=== PATIENT | male | born 1940 | race Caucasian/White ===

== ENCOUNTER → 2016-08-07 | Outpatient (CLI) | payer MEDICARE, OTHER ==
[~2016-08-07] MED LIST: CELEBREX 200MG200 MG PO; COUMADIN; CYMBALTA20 MG; GLUCOPHAGE PO; HYDROCODONE BIT1 T44; LORTAB 5/3251 TAB PO; METFORMIN HYDRO25 GM; NEXIUM2.5 MG/Pac
[2016-08-07 15:56] VITALS: BP 115/71
[2016-08-07 18:10] VITALS: BP 129/84
[2016-08-07 20:13] VITALS: BP 131/75
[2016-08-07 20:23] VITALS: BP 138/97
== END ==
LOC: AMSURD 15:45
DX: R11.2 Nausea with vomiting, unspecified (principal); R19.7 Diarrhea, unspecified; E86.0 Dehydration; E11.8 Type 2 diabetes mellitus with unspecified complications; N39.0 Urinary tract infection, site not specified; E11.9 Type 2 diabetes mellitus without complications
CPT/HCPCS: J7030

== ENCOUNTER → 2019-02-23 | Outpatient (CLI) | payer MEDICARE, OTHER ==
[2016-08-07 20:23] VITALS: BP 138/97
== END ==
LOC: RAD 10:36 → MAMMO 10:45
DX: M81.0 Age-related osteoporosis without current pathological fracture (principal)

== ENCOUNTER 2019-06-08 17:02 | Emergency (ER) | payer MEDICARE, OTHER ==
[~2019-06-08] VITALS: Wt 89.5 kg
[~2019-06-08 17:02] MED LIST changes: -CYMBALTA20 MG; +CYMBALTA60 M1 PO; -GLUCOPHAGE PO; +GLUCOPHAGE1000 MG PO
[2019-06-08 17:34] LABS: HEMATOCRIT 36.8 % (42.0-52.0); HEMOGLOBIN 11.6 g/dL (13.5-18.0); MEAN CELL VOLUME 88 fl (78-100); MEAN CORPUSCULAR HEMOGLOBIN 28 pg (27-31); MEAN CORPUSCULAR HGB CONC 32 g/dL (33-37); MEAN PLATELET VOLUME 10.3 fl (7.4-10.4); PLATELET COUNT 204 K/mm3 (130-400); RED BLOOD COUNT 4.17 M/mm3 (4.20-5.60); RED CELL DISTRIBUTION WIDTH 13.6 % (11.5-14.5); WHITE BLOOD COUNT 14.5 K/mm3 (4.8-10.8)
[2019-06-08 17:42] LABS: ALBUMIN 4.2 g/dL (3.4-4.8); POTASSIUM 4.1 mmol/L (3.5-5.1); SODIUM 134 mmol/L (136-145)
[2019-06-08 17:43] LABS: CALCIUM 9.7 mg/dL (8.3-10.5)
[2019-06-08 17:44] LABS: GLUCOSE 213 mg/dL (75-110)
[2019-06-08 17:46] LABS: CARBON DIOXIDE 22 mmol/L (23-31); TOTAL BILIRUBIN 0.9 mg/dL (0.2-1.2)
[2019-06-08 17:49] LABS: BAND 3 % (0-10); LYMPHOCYTE 8 % (20-51); MONOCYTE 8 % (3-10); NEUTROPHILS 80 % (42-75)
[2019-06-08 17:50] LABS: AST-SGOT 18 U/L (5-34)
[2019-06-08 17:51] LABS: ALT/SGPT 17 U/L (0-55)
[2019-06-08 18:03] LABS: TROPONIN-I < 0.03 ng/mL (<0.030)
[2019-06-08 18:10] LABS: D-DIMER 0.45 mg/L FEU (0.15-0.50); PROTHROMBIN TIME 59.7 SECONDS (9.0-12.0)
[2019-06-08] MEDS ORDERED: ASPIRIN E.C. 8181 MG PO (18:57)
[2019-06-08] MEDS ORDERED: NATURE'S BOUNTY1 TAB PO (18:58)
[2019-06-08] MEDS ORDERED: PLETAL 100MG T100 MG PO (18:59)
[2019-06-08] MEDS ORDERED: FEROSUL325 M1 PO (19:00)
[2019-06-08] MEDS ORDERED: NEURONTIN300 M1 PO (19:00)
[2019-06-08] MEDS ORDERED: NORCO 325 MG-51 TA1 PO (19:00)
[2019-06-08] MEDS ORDERED: LISINOPRIL2.5 MG PO (19:01)
[2019-06-08] MEDS ORDERED: CENTRUM ADULTS1 EACH PO (19:02)
[2019-06-08] MEDS ORDERED: NORTRIPTYLINE H10 M2 PO (19:02)
[2019-06-08] MEDS ORDERED: PRAVASTATIN SOD80 MG PO (19:03)
[2019-06-08] MEDS ORDERED: OMEGA-31000 M1 PO (19:03)
[2019-06-08] MEDS ORDERED: PAMELOR50 M1 PO (19:03)
[2019-06-08] MEDS ORDERED: FLOMAX0.4 MG PO (19:04)
[2019-06-08] MEDS ORDERED: COUMADIN 5MG5 MG/TAB PO ×2 (19:12)
[2019-06-08 19:34] VITALS: BP 114/62
== END 2019-06-08 19:40 | disposition other institution (70) ==
LOC: ED 17:02
PROVIDERS: Nurse Practitioner Family
DX: J20.9 Acute bronchitis, unspecified (principal); J44.0 Chronic obstructive pulmonary disease with (acute) lower respiratory infection; J44.1 Chronic obstructive pulmonary disease with (acute) exacerbation; J18.0 Bronchopneumonia, unspecified organism; N28.9 Disorder of kidney and ureter, unspecified; E11.65 Type 2 diabetes mellitus with hyperglycemia; E11.51 Type 2 diabetes mellitus with diabetic peripheral angiopathy without gangrene; I10 Essential (primary) hypertension; E78.5 Hyperlipidemia, unspecified; K21.9 Gastro-esophageal reflux disease without esophagitis; G47.33 Obstructive sleep apnea (adult) (pediatric); M54.9 Dorsalgia, unspecified; G89.29 Other chronic pain; Z79.01 Long term (current) use of anticoagulants; Z79.82 Long term (current) use of aspirin; Z79.84 Long term (current) use of oral hypoglycemic drugs; Z86.73 Personal history of transient ischemic attack (TIA), and cerebral infarction without residual deficits; Z86.79 Personal history of other diseases of the circulatory system; Z87.891 Personal history of nicotine dependence; Z98.890 Other specified postprocedural states; Z88.0 Allergy status to penicillin
CPT/HCPCS: J0456; J2930; J7030; J7050

== ENCOUNTER 2019-06-08 18:20 | Inpatient (IN) | payer MEDICARE, OTHER ==
[~2019-06-08] VITALS: Ht 167.6 cm; Wt 88.0 kg
[2019-06-08] MEDS ORDERED: ASPIRIN E.C. 8181 MG PO (18:57)
[2019-06-08] MEDS ORDERED: NATURE'S BOUNTY1 TAB PO (18:58)
[2019-06-08] MEDS ORDERED: PLETAL 100MG T100 MG PO (18:59)
[2019-06-08] MEDS ORDERED: FEROSUL325 M1 PO (19:00)
[2019-06-08] MEDS ORDERED: NORCO 325 MG-51 TA1 PO (19:00)
[2019-06-08] MEDS ORDERED: NEURONTIN300 M1 PO (19:00)
[2019-06-08] MEDS ORDERED: LISINOPRIL2.5 MG PO (19:01)
[2019-06-08] MEDS ORDERED: NORTRIPTYLINE H10 M2 PO (19:02)
[2019-06-08] MEDS ORDERED: CENTRUM ADULTS1 EACH PO (19:02)
[2019-06-08] MEDS ORDERED: PRAVASTATIN SOD80 MG PO (19:03)
[2019-06-08] MEDS ORDERED: OMEGA-31000 M1 PO (19:03)
[2019-06-08] MEDS ORDERED: PAMELOR50 M1 PO (19:03)
[2019-06-08] MEDS ORDERED: FLOMAX0.4 MG PO (19:04)
[2019-06-08] MEDS ORDERED: COUMADIN 5MG5 MG/TAB PO ×2 (19:12)
[2019-06-08 19:45] VITALS: BP 114/62
[2019-06-08 20:01] VITALS: BP 114/62
[2019-06-08 23:52] VITALS: BP 110/68
[2019-06-09] VITALS (8 sets, daily range): BP systolic 100–138; BP diastolic 57–80
[2019-06-09 02:55] LABS: URINE APPEARANCE CLEAR; URINE BILIRUBIN NEGATIVE (NEGATIVE); URINE BLOOD NEGATIVE (NEGATIVE); URINE COLOR YELLOW; URINE KETONE 1+ (NEGATIVE); URINE LEUKOCYTE ESTERASE NEGATIVE (NEGATIVE); URINE NITRATE NEGATIVE (NEGATIVE); URINE PROTEIN(semi-quant) NEGATIVE (NEGATIVE); URINE UROBILINOGEN NORMAL (NORMAL); URINE WBC 0-1 /hpf (0-3)
[2019-06-09 07:00] LABS: HEMATOCRIT 32.8 % (42.0-52.0); HEMOGLOBIN 10.4 g/dL (13.5-18.0); MEAN CELL VOLUME 88 fl (78-100); MEAN CORPUSCULAR HEMOGLOBIN 28 pg (27-31); MEAN CORPUSCULAR HGB CONC 32 g/dL (33-37); MEAN PLATELET VOLUME 10.2 fl (7.4-10.4); PLATELET COUNT 191 K/mm3 (130-400); RED BLOOD COUNT 3.71 M/mm3 (4.20-5.60); RED CELL DISTRIBUTION WIDTH 13.7 % (11.5-14.5); WHITE BLOOD COUNT 11.6 K/mm3 (4.8-10.8)
[2019-06-09 07:09] LABS: ALBUMIN 3.7 g/dL (3.4-4.8); POTASSIUM 4.3 mmol/L (3.5-5.1)
[2019-06-09 07:10] LABS: BAND 1 % (0-10); CALCIUM 8.7 mg/dL (8.3-10.5); LYMPHOCYTE 4 % (20-51); MONOCYTE 2 % (3-10); NEUTROPHILS 93 % (42-75)
[2019-06-09 07:12] LABS: TOTAL PROTEIN 6.2 g/dL (6.2-8.1)
[2019-06-09 07:13] LABS: TOTAL BILIRUBIN 0.4 mg/dL (0.2-1.2)
[2019-06-09 10:13] LABS: PROTHROMBIN TIME 69.5 SECONDS (9.0-12.0)
== END 2019-06-09 13:04 | disposition short-term general hospital (02) | DRG 871 ==
LOC: MED/SURG 18:20
PROVIDERS: Physician Assistant; ADMIT Nurse Practitioner Family
DX: A41.9 Sepsis, unspecified organism (principal); J18.9 Pneumonia, unspecified organism; E87.2 Acidosis; J20.9 Acute bronchitis, unspecified; I10 Essential (primary) hypertension; I71.4 Abdominal aortic aneurysm, without rupture; E11.40 Type 2 diabetes mellitus with diabetic neuropathy, unspecified; E11.51 Type 2 diabetes mellitus with diabetic peripheral angiopathy without gangrene; E11.65 Type 2 diabetes mellitus with hyperglycemia; R09.02 Hypoxemia; E78.5 Hyperlipidemia, unspecified; N28.9 Disorder of kidney and ureter, unspecified; K21.9 Gastro-esophageal reflux disease without esophagitis; G47.33 Obstructive sleep apnea (adult) (pediatric); Z79.82 Long term (current) use of aspirin; Z79.84 Long term (current) use of oral hypoglycemic drugs; Z79.01 Long term (current) use of anticoagulants; Z79.891 Long term (current) use of opiate analgesic; Z86.73 Personal history of transient ischemic attack (TIA), and cerebral infarction without residual deficits; Z95.5 Presence of coronary angioplasty implant and graft; Z87.891 Personal history of nicotine dependence
CPT/HCPCS: A4216; J0696; J1650; J1815; J2930; J3370; J7030; J7050; Q9967

== ENCOUNTER 2019-06-18 12:02 | Inpatient (IN) | payer MEDICARE, OTHER ==
[~2019-06-18] VITALS: Ht 167.6 cm; Wt 82.4 kg
[~2019-06-18 12:02] MED LIST changes: +ASPIRIN E.C. 8181 MG PO; +CENTRUM ADULTS1 EACH PO; +COUMADIN 5MG5 MG/TAB PO; +FEROSUL325 M1 PO; +FLOMAX0.4 MG PO; +LISINOPRIL2.5 MG PO; +NATURE'S BOUNTY1 TAB PO; +NEURONTIN300 M1 PO; +NORCO 325 MG-51 TA1 PO; +NORTRIPTYLINE H10 M2 PO; +OMEGA-31000 M1 PO; +PAMELOR50 M1 PO; +PLETAL 100MG T100 MG PO; +PRAVASTATIN SOD80 MG PO
[2019-06-18] MEDS ORDERED: TIAZAC240 M1 PO (16:14)
[2019-06-18] MEDS ORDERED: LEVAQUIN 750MG750 M1 PO (16:15)
[2019-06-18] MEDS ORDERED: PROMETHAZINE-C473 ML PO (16:16)
[2019-06-18] MEDS ORDERED: LISINOPRIL2.5 MG PO (16:17)
[2019-06-18] MEDS ORDERED: LOPRESSOR 225 MG/TAB PO (16:18)
[2019-06-18 16:19] LABS: HEMATOCRIT 33.1 % (42.0-52.0); HEMOGLOBIN 10.3 g/dL (13.5-18.0); MEAN CELL VOLUME 90 fl (78-100); MEAN CORPUSCULAR HEMOGLOBIN 28 pg (27-31); MEAN CORPUSCULAR HGB CONC 31 g/dL (33-37); MEAN PLATELET VOLUME 9.9 fl (7.4-10.4); PLATELET COUNT 206 K/mm3 (130-400); RED CELL DISTRIBUTION WIDTH 14.6 % (11.5-14.5); WHITE BLOOD COUNT 11.4 K/mm3 (4.8-10.8)
[2019-06-18] MEDS ORDERED: NEURONTIN300 MG/CAP (16:20)
[2019-06-18] MEDS ORDERED: COUMADIN 77.5 MG/TAB PO (16:24)
[2019-06-18] MEDS ORDERED: COUMADIN 5MG5 MG/TAB PO (16:25)
[2019-06-18 16:30] LABS: ALBUMIN 3.4 g/dL (3.4-4.8); POTASSIUM 4.3 mmol/L (3.5-5.1)
[2019-06-18 16:31] LABS: BAND 3 % (0-10); LYMPHOCYTE 16 % (20-51); MONOCYTE 12 % (3-10); NEUTROPHILS 65 % (42-75)
[2019-06-18 16:32] LABS: CALCIUM 9.5 mg/dL (8.3-10.5)
[2019-06-18 16:33] LABS: TOTAL PROTEIN 6.6 g/dL (6.2-8.1)
[2019-06-18 16:35] LABS: TOTAL BILIRUBIN 0.7 mg/dL (0.2-1.2)
[2019-06-18 17:02] VITALS: BP 125/70
[2019-06-18 17:06] VITALS: BP 125/70
[2019-06-18 21:16] LABS: PH-URINE 6.5 (5.0 - 8.0); URINE APPEARANCE CLEAR; URINE BILIRUBIN NEGATIVE (NEGATIVE); URINE BLOOD TRACE (NEGATIVE); URINE COLOR YELLOW; URINE GLUCOSE NEGATIVE (NEGATIVE); URINE KETONE NEGATIVE (NEGATIVE); URINE NITRATE NEGATIVE (NEGATIVE); URINE PROTEIN(semi-quant) TRACE mg/dL (NEGATIVE); URINE UROBILINOGEN NORMAL (NORMAL)
[2019-06-18 21:17] LABS: URINE LEUKOCYTE ESTERASE TRACE (NEGATIVE); URINE WBC 0-1 /hpf (0-3)
[2019-06-19 05:52] VITALS: BP 119/67
[2019-06-19 18:00] VITALS: BP 145/70
[2019-06-20 05:59] VITALS: BP 122/66
[2019-06-20 18:16] VITALS: BP 110/64
[2019-06-20 18:28] LABS: PH-URINE 7.5 (5.0 - 8.0); URINE APPEARANCE CLEAR; URINE BILIRUBIN NEGATIVE (NEGATIVE); URINE BLOOD NEGATIVE (NEGATIVE); URINE COLOR YELLOW; URINE GLUCOSE NEGATIVE (NEGATIVE); URINE KETONE NEGATIVE (NEGATIVE); URINE LEUKOCYTE ESTERASE NEGATIVE (NEGATIVE); URINE NITRATE NEGATIVE (NEGATIVE); URINE PROTEIN(semi-quant) NEGATIVE (NEGATIVE); URINE UROBILINOGEN NORMAL (NORMAL); URINE WBC 0-1 /hpf (0-3)
[2019-06-20 18:29] LABS: URINE MUCUS PRESENT (NOT PRESENT)
[2019-06-21 06:02] VITALS: BP 118/52
[2019-06-21 18:20] VITALS: BP 125/76
[2019-06-22 05:53] VITALS: BP 102/60
[2019-06-22 06:33] LABS: PROTHROMBIN TIME 21.3 SECONDS (9.0-12.0)
[2019-06-22 09:22] LABS: EOS # 0.2 (0.04-0.40); EOS % 1.6 % (0.0-4.0); HEMATOCRIT 36.3 % (42.0-52.0); HEMOGLOBIN 11.1 g/dL (13.5-18.0); LYMPH# 1.9 (1.50-4.00); MEAN CELL VOLUME 90 fl (78-100); MEAN CORPUSCULAR HEMOGLOBIN 28 pg (27-31); MEAN CORPUSCULAR HGB CONC 31 g/dL (33-37); MONO # 0.9 (0.20-0.80); NEU # 6.3 (1.40-6.50); PLATELET COUNT 209 K/mm3 (130-400); RED BLOOD COUNT 4.04 M/mm3 (4.20-5.60); RED CELL DISTRIBUTION WIDTH 15.2 % (11.5-14.5); WHITE BLOOD COUNT 9.7 K/mm3 (4.8-10.8)
[2019-06-22 09:54] LABS: POTASSIUM 4.4 mmol/L (3.5-5.1)
[2019-06-22 09:55] LABS: CALCIUM 9.3 mg/dL (8.3-10.5)
[2019-06-22 18:20] VITALS: BP 107/65
[2019-06-22 21:15] VITALS: BP 84/56
[2019-06-23 06:05] VITALS: BP 161/64
[2019-06-23 07:40] VITALS: BP 109/65
[2019-06-23 14:23] VITALS: BP 97/56
[2019-06-23 18:38] VITALS: BP 101/61
[2019-06-24 05:57] VITALS: BP 104/56
[2019-06-24 08:42] VITALS: BP 124/78
[2019-06-24 17:51] VITALS: BP 106/58
[2019-06-25 05:49] VITALS: BP 105/70
[2019-06-25 12:36] VITALS: BP 85/53
[2019-06-25 17:18] VITALS: BP 113/70
[2019-06-25 18:08] VITALS: BP 91/58
[2019-06-26 05:55] VITALS: BP 100/69
[2019-06-26 09:30] VITALS: BP 102/63
[2019-06-26 12:54] VITALS: BP 92/68
[2019-06-26 14:05] VITALS: BP 131/72
[2019-06-26 18:18] VITALS: BP 120/67
[2019-06-27 05:45] VITALS: BP 115/74
[2019-06-27 11:30] LABS: POTASSIUM 4.3 mmol/L (3.5-5.1)
[2019-06-27 11:32] LABS: CALCIUM 9.2 mg/dL (8.3-10.5)
[2019-06-27 11:44] LABS: PROTHROMBIN TIME 35.7 SECONDS (9.0-12.0)
[2019-06-27 18:13] VITALS: BP 98/57
[2019-06-27 18:14] VITALS: BP 99/60
[2019-06-27 21:00] VITALS: BP 126/71
[2019-06-28 05:46] VITALS: BP 125/77
[2019-06-28 13:05] LABS: PROTHROMBIN TIME 24.2 SECONDS (9.0-12.0)
[2019-06-28 17:09] VITALS: BP 94/57
[2019-06-28 21:00] VITALS: BP 95/63
[2019-06-29 05:48] VITALS: BP 98/58
[2019-06-29 08:59] VITALS: BP 104/68
[2019-06-29 17:08] VITALS: BP 100/62
[2019-06-30 05:41] VITALS: BP 110/57
[2019-06-30] MEDS ORDERED: CARDIZEM CD180 M1 PO (08:34)
== END 2019-06-30 10:23 | disposition home or self-care (01) | DRG 947 ==
LOC: MED/SURG 12:02
PROVIDERS: Family Medicine; Internal Medicine; ADMIT Nurse Practitioner Primary Care
DX: R53.81 Other malaise (principal); J96.01 Acute respiratory failure with hypoxia; J18.9 Pneumonia, unspecified organism; B34.8 Other viral infections of unspecified site; I48.91 Unspecified atrial fibrillation; I10 Essential (primary) hypertension; E78.5 Hyperlipidemia, unspecified; E11.9 Type 2 diabetes mellitus without complications; I25.10 Atherosclerotic heart disease of native coronary artery without angina pectoris; R13.10 Dysphagia, unspecified; R00.0 Tachycardia, unspecified; I95.9 Hypotension, unspecified; N40.0 Benign prostatic hyperplasia without lower urinary tract symptoms; I25.2 Old myocardial infarction; K21.9 Gastro-esophageal reflux disease without esophagitis; G47.33 Obstructive sleep apnea (adult) (pediatric); R55 Syncope and collapse; Z79.82 Long term (current) use of aspirin; Z79.84 Long term (current) use of oral hypoglycemic drugs; Z79.891 Long term (current) use of opiate analgesic; Z79.01 Long term (current) use of anticoagulants; Z86.73 Personal history of transient ischemic attack (TIA), and cerebral infarction without residual deficits; Z87.891 Personal history of nicotine dependence; Z88.0 Allergy status to penicillin
CPT/HCPCS: J1650; J7030; J7050

== ENCOUNTER 2019-07-19 14:00 | Outpatient (RCR) | payer MEDICARE, OTHER ==
[~2019-07-19 14:00] MED LIST changes: +CARDIZEM CD180 M1 PO; +COUMADIN 77.5 MG/TAB PO; +LEVAQUIN 750MG750 M1 PO; +LOPRESSOR 225 MG/TAB PO; +NEURONTIN300 MG/CAP; +PROMETHAZINE-C473 ML PO; +TIAZAC240 M1 PO
== END 2019-07-19 14:30 ==
LOC: PT 14:00
DX: R53.1 Weakness (principal)

== ENCOUNTER 2020-03-07 15:30 | Inpatient (IN) | payer MEDICARE, OTHER ==
[~2020-03-07] VITALS: Ht 167.6 cm; Wt 73.9 kg
[2020-03-07] MEDS ORDERED: CARVEDILOL6.25 MG PO (17:54)
[2020-03-07] MEDS ORDERED: GLUCOPHAGE500 MG/TAB PO (18:14)
[2020-03-07] MEDS ORDERED: NEXIUM 40MG40 MG PO (18:17)
[2020-03-07] MEDS ORDERED: CRESTOR20 MG PO (18:20)
[2020-03-07] MEDS ORDERED: VITAMIN D3100 MCG PO (18:23)
[2020-03-07 18:28] VITALS: BP 95/63
[2020-03-07 20:54] LABS: URINE APPEARANCE CLEAR; URINE BILIRUBIN NEGATIVE (NEGATIVE); URINE BLOOD NEGATIVE (NEGATIVE); URINE COLOR YELLOW; URINE GLUCOSE NEGATIVE (NEGATIVE); URINE KETONE NEGATIVE (NEGATIVE); URINE LEUKOCYTE ESTERASE NEGATIVE (NEGATIVE); URINE MUCUS PRESENT (NOT PRESENT); URINE NITRATE NEGATIVE (NEGATIVE); URINE PROTEIN(semi-quant) TRACE mg/dL (NEGATIVE); URINE UROBILINOGEN NORMAL (NORMAL)
[2020-03-07 22:23] VITALS: BP 103/57
[2020-03-08 01:39] VITALS: BP 134/70
[2020-03-08 06:09] VITALS: BP 130/64
[2020-03-08 07:50] LABS: BASO # 0.1 (0.02-0.10); EOS # 0.4 (0.04-0.40); EOS % 4.3 % (0.0-4.0); HEMOGLOBIN 10.8 g/dL (13.5-18.0); LYMPH# 1.9 (1.50-4.00); MEAN CELL VOLUME 86 fl (78-100); MEAN CORPUSCULAR HEMOGLOBIN 28 pg (27-31); MEAN CORPUSCULAR HGB CONC 33 g/dL (33-37); MEAN PLATELET VOLUME 9.5 fl (7.4-10.4); MONO # 1.1 (0.20-0.80); NEU # 5.5 (1.40-6.50); PLATELET COUNT 201 K/mm3 (130-400); RED BLOOD COUNT 3.85 M/mm3 (4.20-5.60); RED CELL DISTRIBUTION WIDTH 14.9 % (11.5-14.5); WHITE BLOOD COUNT 9.1 K/mm3 (4.8-10.8)
[2020-03-08 07:54] LABS: ALBUMIN 3.2 g/dL (3.4-4.8); POTASSIUM 4.2 mmol/L (3.5-5.1)
[2020-03-08 07:56] LABS: CALCIUM 9.2 mg/dL (8.3-10.5)
[2020-03-08 07:57] LABS: TOTAL PROTEIN 6.7 g/dL (6.2-8.1)
[2020-03-08 08:03] LABS: MAGNESIUM 1.45 mg/dL (1.60-2.60)
[2020-03-08 10:30] VITALS: BP 99/63
[2020-03-08 12:48] VITALS: BP 99/63
[2020-03-08 17:29] VITALS: BP 111/62
[2020-03-08 22:00] VITALS: BP 113/68
[2020-03-09] VITALS (9 sets, daily range): BP systolic 93–142; BP diastolic 58–89
[2020-03-09 12:01] LABS: EOS # 0.2 (0.04-0.40); EOS % 2.4 % (0.0-4.0); HEMATOCRIT 36.1 % (42.0-52.0); HEMOGLOBIN 11.4 g/dL (13.5-18.0); LYMPH# 1.6 (1.50-4.00); MEAN CELL VOLUME 87 fl (78-100); MEAN CORPUSCULAR HEMOGLOBIN 28 pg (27-31); MEAN CORPUSCULAR HGB CONC 32 g/dL (33-37); MEAN PLATELET VOLUME 9.5 fl (7.4-10.4); MONO # 0.8 (0.20-0.80); NEU # 6.3 (1.40-6.50); PLATELET COUNT 239 K/mm3 (130-400); RED BLOOD COUNT 4.14 M/mm3 (4.20-5.60); RED CELL DISTRIBUTION WIDTH 15.4 % (11.5-14.5)
[2020-03-09 12:14] LABS: POTASSIUM 4.2 mmol/L (3.5-5.1)
[2020-03-09 12:15] LABS: CALCIUM 9.7 mg/dL (8.3-10.5)
[2020-03-10] VITALS (9 sets, daily range): BP systolic 105–133; BP diastolic 62–79
[2020-03-11] VITALS (8 sets, daily range): BP systolic 83–122; BP diastolic 55–78
[2020-03-11 11:56] LABS: HEMATOCRIT 37.4 % (42.0-52.0); HEMOGLOBIN 11.8 g/dL (13.5-18.0)
[2020-03-11 12:04] LABS: POTASSIUM 4.4 mmol/L (3.5-5.1)
[2020-03-11 12:05] LABS: CALCIUM 10.1 mg/dL (8.3-10.5)
[2020-03-12 01:25] VITALS: BP 131/84
[2020-03-12 05:39] VITALS: BP 115/71
[2020-03-12 08:35] VITALS: BP 114/77
[2020-03-12 14:23] VITALS: BP 111/73
[2020-03-12 18:00] VITALS: BP 116/76
[2020-03-12 21:41] VITALS: BP 106/67
[2020-03-13 01:36] VITALS: BP 112/74
[2020-03-13 06:06] VITALS: BP 132/76
[2020-03-13 07:26] LABS: EOS # 0.2 (0.04-0.40); EOS % 1.9 % (0.0-4.0); HEMATOCRIT 34.8 % (42.0-52.0); HEMOGLOBIN 10.8 g/dL (13.5-18.0); MEAN CELL VOLUME 87 fl (78-100); MEAN CORPUSCULAR HEMOGLOBIN 27 pg (27-31); MEAN CORPUSCULAR HGB CONC 31 g/dL (33-37); MEAN PLATELET VOLUME 9.3 fl (7.4-10.4); MONO # 0.9 (0.20-0.80); NEU # 5.9 (1.40-6.50); PLATELET COUNT 277 K/mm3 (130-400); RED CELL DISTRIBUTION WIDTH 15.1 % (11.5-14.5)
[2020-03-13 07:36] LABS: POTASSIUM 3.9 mmol/L (3.5-5.1)
[2020-03-13 07:37] LABS: CALCIUM 9.4 mg/dL (8.3-10.5)
[2020-03-13 07:43] LABS: MAGNESIUM 1.34 mg/dL (1.60-2.60)
[2020-03-13 10:05] VITALS: BP 106/71
[2020-03-13 13:37] VITALS: BP 123/78
[2020-03-13 17:05] VITALS: BP 126/75
[2020-03-13 21:57] VITALS: BP 141/74
[2020-03-14 01:23] VITALS: BP 148/71
[2020-03-14 05:54] VITALS: BP 123/80
[2020-03-14] MEDS ORDERED: SLOW-MAG 106 MG1 ECT PO (07:56)
[2020-03-14 09:40] VITALS: BP 116/70
[2020-03-14 10:10] VITALS: BP 108/68
== END 2020-03-14 10:14 | disposition home health service (06) | DRG 948 ==
LOC: MED/SURG 15:30
PROVIDERS: Family Medicine; ADMIT Nurse Practitioner Family
DX: R53.81 Other malaise (principal); I10 Essential (primary) hypertension; I25.10 Atherosclerotic heart disease of native coronary artery without angina pectoris; E11.51 Type 2 diabetes mellitus with diabetic peripheral angiopathy without gangrene; I34.0 Nonrheumatic mitral (valve) insufficiency; I48.91 Unspecified atrial fibrillation; M19.90 Unspecified osteoarthritis, unspecified site; K21.9 Gastro-esophageal reflux disease without esophagitis; E83.42 Hypomagnesemia; G47.33 Obstructive sleep apnea (adult) (pediatric); G89.29 Other chronic pain; M54.9 Dorsalgia, unspecified; E78.5 Hyperlipidemia, unspecified; Z79.01 Long term (current) use of anticoagulants; Z79.84 Long term (current) use of oral hypoglycemic drugs; Z79.891 Long term (current) use of opiate analgesic; Z99.81 Dependence on supplemental oxygen; Z86.73 Personal history of transient ischemic attack (TIA), and cerebral infarction without residual deficits; Z87.891 Personal history of nicotine dependence; Z88.0 Allergy status to penicillin; Z88.6 Allergy status to analgesic agent
CPT/HCPCS: J1815; J7030

== ENCOUNTER 2020-04-10 23:55 | Emergency (ER) | payer MEDICARE, OTHER ==
[~2020-04-10] VITALS: Ht 167.6 cm; Wt 77.3 kg
[~2020-04-10 23:55] MED LIST changes: +CARVEDILOL6.25 MG PO; +CRESTOR20 MG PO; +GLUCOPHAGE500 MG/TAB PO; +NEXIUM 40MG40 MG PO; +SLOW-MAG 106 MG1 ECT PO; +VITAMIN D3100 MCG PO
[2020-04-11 00:50] VITALS: BP 119/86
== END 2020-04-11 00:50 | disposition home or self-care (01) ==
LOC: ED 23:55
DX: I10 Essential (primary) hypertension (principal); E11.9 Type 2 diabetes mellitus without complications; K21.9 Gastro-esophageal reflux disease without esophagitis; I25.10 Atherosclerotic heart disease of native coronary artery without angina pectoris; Z87.891 Personal history of nicotine dependence; Z90.49 Acquired absence of other specified parts of digestive tract; Z79.82 Long term (current) use of aspirin; Z79.84 Long term (current) use of oral hypoglycemic drugs

== ENCOUNTER → 2021-10-01 | Outpatient (CLI) | payer MEDICARE, OTHER | LOC: RAD 14:31 | DX: M47.816 Spondylosis without myelopathy or radiculopathy, lumbar region (principal); Z98.890 Other specified postprocedural states; M43.9 Deforming dorsopathy, unspecified ==

== ENCOUNTER → 2021-11-16 | Outpatient (CLI) | payer MEDICARE, OTHER ==
[2021-11-16 13:49] LABS: POTASSIUM 4.8 mmol/L (3.5-5.1)
[2021-11-16 13:51] LABS: CALCIUM 9.6 mg/dL (8.3-10.5)
== END ==
LOC: LAB 13:10
PROVIDERS: Family Medicine
DX: Z01.812 Encounter for preprocedural laboratory examination (principal); J43.9 Emphysema, unspecified
CPT/HCPCS: Q9967

== ENCOUNTER → 2023-06-20 | Outpatient (CLI) | payer MEDICARE, OTHER ==
[~2023-06-20] MED LIST changes: +ACETAMINOPHEN-H1 TA2 PO; +BISOPROLOL FUMA10 M1 PO; +DITROPAN XL10 M1 PO; +GLIMEPIRIDE2 M1 PO; +GOOD NEIGHBOR L10 MG PO; +LEVEMIR FLEX100 U/ML SQ; +LEVOTHYROXINE0.05 MG PO; +MULTIPLE VITAMI1 TA1 PO; +SUCRALFATE1 G1 PO
== END ==
LOC: RAD 16:04
DX: R05.1 Acute cough (principal)